=== PATIENT | female | born 1945 | race Caucasian/White ===

== ENCOUNTER 2018-10-21 12:10 | Emergency (ER) | payer OTHER ==
[~2018-10-21] VITALS: Ht 154.9 cm; Wt 102.5 kg
[2018-10-21] MEDS ORDERED: ZOLOFT50 MG (12:58)
[2018-10-21] MEDS ORDERED: CARDIZEM30 MG (12:58)
[2018-10-21] MEDS ORDERED: PANADOL EXTRA500 MG (12:59)
[2018-10-21] MEDS ORDERED: NEXIUM40 M1 (12:59)
== END 2018-10-21 23:09 | disposition home or self-care (01) ==
LOC: ER 12:10
DX: K52.89 Other specified noninfective gastroenteritis and colitis (principal); R53.1 Weakness